=== PATIENT | male | born 1990 | race Hispanic/Latino ===

== ENCOUNTER 2023-10-24 14:04 | Emergency (ER) | payer SELFPAY ==
[~2023-10-24] VITALS: Ht 162.6 cm; Wt 70.0 kg
[2023-10-24] MEDS ORDERED: KETOROLAC TROMETHAMINE 30 MG/ML SDV IM ONE (14:20)
[2023-10-24] MEDS ORDERED: ORPHENADRINE CITRATE 30 MG/ML AMP IM ONE (14:20)
[2023-10-24] MEDS ORDERED: NAPROXEN500 MG PO (15:58)
[2023-10-24] MEDS ORDERED: METHOCARBAMOL500 MG PO (15:58)
[2023-10-24 16:01] VITALS: BP 140/90
== END 2023-10-24 16:07 | disposition home or self-care (01) | DRG 563 ==
LOC: ED 14:04
DX: S29.011A Strain of muscle and tendon of front wall of thorax, initial encounter (principal); X50.3XXA Overexertion from repetitive movements, initial encounter; Y93.89 Activity, other specified; Y92.73 Farm field as the place of occurrence of the external cause; Y99.0 Civilian activity done for income or pay